=== PATIENT | female | born 1960 | race African-American/Black ===

== ENCOUNTER 2025-01-01 06:24 | Day surgery (SDC) | payer OTHER ==
[2025-01-01 07:21] VITALS: BMI 33.4
[2025-01-01] MEDS ORDERED: MIDAZOLAM HCL 2 MG/2 ML SINGLE DOSE VIAL ONE ×3 (07:22→09:42)
[2025-01-01] MEDS ORDERED: BUPIVACAINE HCL/PF 0.5% (5 MG/ML) 30 ML VIAL IJ ONE (07:37)
[2025-01-01] MEDS ORDERED: BUPIVACAINE LIPOSOME/PF (EXPAREL) 266 MG/20 ML VIAL ONE (07:38)
[2025-01-01] MEDS ORDERED: BUPIVACAINE HCL/PF 0.5% (5MG/ML) 10 ML VIAL ONE ×2 (08:09→08:10)
[2025-01-01] MEDS ORDERED: oxyCODONE HCL 5 MG TABLET PO PRN (09:07)
[2025-01-01] MEDS ORDERED: ONDANSETRON 4 MG/2 ML VIAL IVPUSH PRN ×2 (09:07→10:48)
[2025-01-01] MEDS ORDERED: SODIUM CHLORIDE 0.9% P/F 10 ML VIAL IJ ONE (09:26)
[2025-01-01] MEDS ORDERED: ceFAZolin SODIUM 1 GM VIAL ONE (09:26)
[2025-01-01] MEDS ORDERED: DEXAMETHASONE SOD PHOSPHATE 4 MG/1 ML VIAL ONE (09:26)
[2025-01-01] MEDS ORDERED: TRANEXAMIC ACID 1000 MG/10 ML VIAL ONE (09:26)
[2025-01-01] MEDS ORDERED: ONDANSETRON 4 MG/2 ML VIAL ONE (09:26)
[2025-01-01] MEDS ORDERED: MAGNESIUM HYDROX 2400MG/30ML ORAL SUSPENSION 30 ML CUP PO PRN (10:48)
[2025-01-01] MEDS ORDERED: MAG HYDROX/AL HYDROX/SIMETH 30 ML UNIT-DOSE CUP PO PRN (10:48)
[2025-01-01] MEDS ORDERED: ACETAMINOPHEN 1000 MG/100 ML BAG IVPB SCH (11:00)
[2025-01-01] MEDS ORDERED: ACETAMINOPHEN INJECTION 100 ML ONE (11:27)
[2025-01-01] MEDS: ACETAMINOPHEN 1000 MG/100 ML BAG IVPB ONE (11:31)
[2025-01-01] MEDS: oxyCODONE HCL 10 MG SUSTAINED ACTING TABLET PO SCH (14:51)
[2025-01-01] MEDS: KETOROLAC TROMETHAMINE 30 MG/1 ML VIAL IVPUSH SCH (14:52)
[2025-01-01] MEDS: CEFAZOLIN 2 GM in DEXTROSE 5%-WATER - 100 ML IVPB ONE (14:52)
[2025-01-01] MEDS: LACTATED RINGERS SOLUTION 1,000 ML IV SCH (15:22)
[2025-01-01] MEDS: SODIUM CHLORIDE IVPB SCH (16:09)
[2025-01-01] MEDS: CEFAZOLIN SODIUM IVPB SCH (16:09)
[2025-01-01] MEDS: ACETAMINOPHEN 500 MG TABLET (FP) PO SCH (17:49)
[2025-01-01] MEDS: oxyCODONE HCL 5 MG TABLET PO PRN (17:51)
[2025-01-01] MEDS: SENNOSIDES/DOCUSATE COMBO (SENNA PLUS) TABLET (UD) PO SCH (21:41)
[2025-01-01] MEDS: TRANEXAMIC ACID - 1,000 MG in SODIUM CHLORIDE 50 ML IVPB SCH (21:41)
[2025-01-01] MEDS: DEXAMETHASONE 4 MG TABLET (FP) PO SCH (21:41)
[2025-01-01] MEDS: ASPIRIN 81 MG CHEWABLE TABLETS PO SCH (21:41)
[2025-01-01] MEDS: FAMOTIDINE 20 MG TABLET PO SCH (21:41)
[2025-01-01] MEDS ORDERED: TRANEXAMIC ACID 1000 MG/10 ML VIAL IVPB SCH (22:00)
[2025-01-02] MEDS: GLIMEPIRIDE 2 MG TABLET PO SCH (06:15)
[2025-01-02] MEDS: VALSARTAN 80 MG TABLET PO SCH (09:34)
[2025-01-02] MEDS: LISINOPRIL 10 MG TABLET PO SCH (09:35)
[2025-01-02] MEDS: MULTIVITAMINS (DAILY MVI) TABLET (FP) PO SCH (09:35)
[2025-01-03 00:19] VITALS: RESP 18
[2025-01-03 10:35] VITALS: PULSE 70
[2025-01-03 14:27] VITALS: BP 167/66; TEMP 98.1
== END 2025-01-03 15:56 ==
LOC: FASUSAT 06:24 → FM/S 11:52 → FASUSAT 01-03 15:56
PROVIDERS: ATTEND Orthopaedic Surgery
PROC: 0SRC0J9 Replacement of Right Knee Joint with Synthetic Substitute, Cemented, Open Approach (ICD-10-PCS; principal; 2025-01-01 08:51)
DX: M17.11 Unilateral primary osteoarthritis, right knee (principal)
CPT/HCPCS: 27447; C1776; 73560-TC-RT-FY; 82962; 94760; 97010-GP; 97116-GP; 97162-GP; J0131